=== PATIENT | male | born 1980 | race Caucasian/White ===

== ENCOUNTER 2020-05-12 21:55 | Emergency (ER) | payer MEDICAID ==
[~2020-05-12] VITALS: Ht 177.8 cm; Wt 73.0 kg
[2020-05-12] MEDS ORDERED: ONDANSETRON HCL 4MG/2ML INJ IV STA (22:40)
[2020-05-12] MEDS ORDERED: FAMOTIDINE 20MG/2ML VIAL IV STA (22:40)
[2020-05-12] MEDS ORDERED: MORPHINE SULFATE 4 MG/ML CPJ (NOT FOR IM USE) IV STA (22:40)
[2020-05-12] MEDS ORDERED: SODIUM CHLORIDE 0.9% 1,000 ML IV ONE (22:45)
[2020-05-12 23:12] LABS: BASOPHILS % 0.3 % (0.0-2.0); EOSINOPHILS % 0.3 % (0.0-5.0); HEMATOCRIT. 49.4 % (42.0-52.0); HEMOGLOBIN. 16.5 g/dL (14.0-18.0); LYMPHOCYTES % 10.8 % (20.0-50.0); MEAN CORPUSCULAR HEMOGLOBIN 32.3 pg (28.0-32.0); MEAN CORPUSCULAR VOLUME 96.7 fL (80.0-94.0); MEAN PLATELET VOLUME 9.5 fl (7.4-10.4); MONOCYTES % 4.1 % (2.0-8.0); NEUTROPHILS % 84.5 % (40.0-76.0); PLATELET 175 x1000/uL (130-400); RED BLOOD CELL COUNT 5.11 mill/uL (4.7-6.1); RED CELL DISTRIBUTION WIDTH 13.7 % (11.6-14.6)
[2020-05-12 23:21] LABS: CHLORIDE 97 mEq/L (98-107)
[2020-05-12 23:22] LABS: PROTHROMBIN TIME 10.9 sec (9.6-11.0)
[2020-05-12 23:26] LABS: ETHANOL BLOOD < 10 mg/dL
[2020-05-13] MEDS ORDERED: KETOROLAC 15MG/ML VIAL IV ONE (00:45)
[2020-05-13] MEDS ORDERED: IOHEXOL-300 100 ML BOTTLE ONE (01:51)
[2020-05-13 02:18] VITALS: BP 131/83
== END 2020-05-13 02:30 | disposition home or self-care (01) ==
LOC: ER 21:55
DX: K29.00 Acute gastritis without bleeding (principal); Z87.19 Personal history of other diseases of the digestive system
CPT/HCPCS: 36415; 74177; 80053; 80320; 83690; 85025; 85610; 93005; 96361; 96374; 96375; 99285; J1885; J2270; J2405; J3490; J7030; Q9967; 80305; G0480